=== PATIENT | male | born 1995 | race Caucasian/White ===

== ENCOUNTER → 2022-06-12 | Outpatient (CLI) | payer OTHER ==
--- NOTE | 2022-06-12 12:32 | XR ---
EXAMINATION TYPE: XR abdomen 2V DATE OF EXAM: 06/12/2022 CLINICAL HISTORY: Constipation for 2 weeks. TECHNIQUE: Supine and upright views of the abdomen are obtained. COMPARISON: None. FINDINGS: Some paucity of small bowel gas. Gas is seen in nondistended stomach and colon along the pe riphery. There is no visceromegaly, pneumoperitoneum, or abnormal calcification appreciated. The l laureen bases are clear and the osseous structures are intact. IMPRESSION: Overall nonspecific strongly favor nonobstructive bowel gas pattern.
== END | disposition home or self-care (01) ==
LOC: RADXRMAIN 11:55
PROVIDERS: ATTEND Family Medicine
DX: K59.00 Constipation, unspecified (principal)
CPT/HCPCS: 74019